=== PATIENT | female | born 1975 | race Caucasian/White ===

== ENCOUNTER 2023-02-04 21:28 | Emergency (ER) | payer MEDICAID ==
[~2023-02-04] VITALS: Ht 154.9 cm; Wt 97.5 kg
[2023-02-04 21:59] VITALS: BP 107/73; PULSE 63; RESP 14; TEMP 97.2; O2SAT 98
[2023-02-04] MEDS ORDERED: KETOROLAC 30 MG/ML VIAL IM ONE (23:20)
[2023-02-04] MEDS ORDERED: NAPR-54 PO (23:24)
[2023-02-04 23:59] VITALS: BP 109/65; PULSE 63; RESP 16; TEMP 97.8; O2SAT 98
== END 2023-02-04 23:59 | disposition home or self-care (01) ==
LOC: MED 21:28
DX: S83.8X2A Sprain of other specified parts of left knee, initial encounter (principal); X58.XXXA Exposure to other specified factors, initial encounter; Y93.89 Activity, other specified; Y92.89 Other specified places as the place of occurrence of the external cause; Y99.8 Other external cause status
CPT/HCPCS: 29505; 73562; 96372; 99283; J1885; Q0092